=== PATIENT | female | born 1935 | race Caucasian/White ===

== ENCOUNTER 2017-10-06 16:41 | Emergency (ER) | payer MEDICARE, OTHER ==
[2017-10-06] MEDS ORDERED: Sodium Chloride 0.9% 10 ML Syringe FLUSH PRN ×2 (16:49→17:51)
[2017-10-06] MEDS ORDERED: Ondansetron 4 MG/2 ML SDV IVPUSH ONE (16:49)
[2017-10-06 16:53] VITALS: BP 159/78
[2017-10-06] MEDS ORDERED: Diatrizoate Meglumine/Diatrizoate Sodium 37% 120 ML Bottle PO ONE (17:51)
[2017-10-06] MEDS ORDERED: Iopamidol 612 MG/ML 100 ML Bottle IVPUSH ONE (17:51)
--- NOTE | 2017-10-06 18:36 | CT ---
CT abdomen and pelvis Technique: Multiple axial sections were obtained from above the dome of the diaphragm inferiorly to the pubic symphysis. Intravenous and oral contrast has been given. Delayed images were obtained through the bladder. Comparison: Previous CT abdomen and pelvis exam of 12/21/11. Findings: Visualized lung bases shows nothing acute. Large hiatal hernia is seen increased in size from prior study with majority of stomach being intrathoracic. Liver shows no focal parenchymal abnormality. Surgical clips are seen from prior cholecystectomy. Adrenal glands show no nodule. Pancreas is within normal limits. Spleen appears within normal limits. Fatty containing lesion is seen posteriorly within the right kidney measuring about 3.3 cm in size which is stable. Smaller lesion is noted anteriorly within the right kidney measuring about 1 cm in size. These are felt compatible with stable angiomyolipomas. Cyst is noted within the left kidney measuring 1.9 cm in size slightly increased in size from prior exam which is incidental. Aorta and iliac vessels shows atherosclerotic change without aneurysm. No retroperitoneal adenopathy or mesenteric abnormalities are seen. Surgical clips are seen from prior cholecystectomy. Fat-containing anterior abdominal wall hernia is seen which is stable from previous exam. Diverticuli are seen within the sigmoid colon with no findings of diverticulitis. Diverticuli are also seen within the descending colon. No pelvic mass or adenopathy is seen. Delayed images shows contrast within the distal ureters and within the bladder. Bone window settings were reviewed which shows disc space narrowing and vacuum phenomena within the L2-3 through L5-S1 disks. Lesser vacuum phenomena is seen within the T11-T12 disc. Impression: 1. Large hiatal hernia with majority of stomach being intrathoracic. This has increased in prominence from previous exam. 2. Other findings as noted above which are felt to be fairly stable from previous exam. Nothing acute is seen. Diagnostic code #3
--- NOTE | 2017-10-06 19:54 | EDM.PDOC ---
ED HPI GENERAL MEDICAL PROBLEM - General Chief Complaint: Gastrointestinal Problem Stated Complaint: [facility] Time Seen by Provider: 10/06/17 16:44 Source of Information: Reports: Patient, EMS History Limitations: Reports: No Limitations - History of Present Illness INITIAL COMMENTS - FREE TEXT/NARRATIVE: The patient presents with diarrhea, generalized weakness, and nausea. She does have some abdominal pain at times. She has a moderate cough with shortness of breath also. She has no fever. She does have some chills. She has not had antibiotics recently. She is very weak and has no appetite. She is unable to take much in because of the nausea. EMS gave her a dose of zofran. Onset: Gradual Duration: Week(s): (2) Location: Reports: Abdomen Quality: Reports: Ache Severity: Moderate Improves with: Reports: None Worsens with: Reports: None Associated Symptoms: Reports: Cough, Fever/Chills, Nausea/Vomiting. Denies: Chest Pain, Headaches, Shortness of Breath Treatments INSECTICIDE EXPERT: Reports: Other (see below) Other Treatments INSECTICIDE EXPERT: immodium - Related Data Allergies Allergy/AdvReac Type Severity Reaction Status Date / Time ciprofloxacin Allergy Stomach Verified 10/06/17 16:48 Upset Home Meds: Home Meds Gluc/Brown-Msm#2/C/D3/Behzad/Born [Cylczublqt-Zotmqbvdbgz-XRD] 2 tab PO DAILY 10/18 [History] Labetalol [Normodyne] 50 mg PO BID 10/18/15 [History] Lisinopril/Hydrochlorothiazide [Lisinopril-Hctz 20-12.5 mg Tab] 1 each PO DAILY 10/18/15 [History] amLODIPine [Norvasc] 5 mg PO DAILY 10/18/15 [History] Woxsf-G-Ewuhhumccmuzi [Beano] 1 tab PO DAILY PRN 10/06/17 [History] Aspirin [Halfprin] 81 mg PO DAILY 10/06/17 [History] Calcium Carbonate/Vitamin D3 [Os-Teodoro 500+D] 1 tab PO DAILY 10/06/17 [History] Cholecalciferol (Vitamin D3) [Vitamin D3] 1,000 units PO DAILY 10/06/17 [History ] Cinnamon Bark [Cinnamon] 1,000 mg PO DAILY 10/06/17 [History] Hydrocortisone [Hydrocortisone 2.5% Crm] 1 applic TOP BID PRN 10/06/17 [History] Ibuprofen 200 mg PO Q4H PRN 10/06/17 [History] Immodium 10/06/17 [History] Omeprazole [priLOSEC OTC] 20 mg PO DAILY 10/06/17 [History] Psyllium Husk [Psyllium] 1 tab PO DAILY 10/06/17 [History] Simethicone [Gas Relief] 1 mg PO DAILY PRN 10/06/17 [History] Womens Health Support Po 10/06/17 [History] Past Medical History HEENT History: Reports: Cataract Cardiovascular History: Reports: Heart Murmur, Hypertension Gastrointestinal History: Reports: GERD, Hemorrhoids Other Gastrointestinal History: diverticulitis Genitourinary History: Reports: Urinary Incontinence 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: Musculoskeletal History: Reports: Arthritis, Back Pain, Chronic Other Musculoskeletal History: spinal stenisis Psychiatric History: Reports: Anxiety, Depression Endocrine/Metabolic History: Reports: Hypothyroidism, Osteoporosis 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 Other Dermatologic History: gout - Past Surgical History HEENT Surgical History: Reports: Cataract Surgery GI Surgical History: Reports: Cholecystectomy, Hernia, Abdominal Other GI Surgeries/Procedures: umbillical Social & Family History - Tobacco Use Smoking Status *Q: Never Smoker Second Hand Smoke Exposure: No - Caffeine Use Caffeine Use: Reports: Coffee, Soda, Tea - Recreational Drug Use Recreational Drug Use: No - Living Situation & Occupation Living situation: Reports: , Alone Occupation: Retired ED ROS GENERAL - Review of Systems Review Of Systems: See Below Constitutional: Reports: Chills. Denies: Fever HEENT: Reports: No Symptoms Respiratory: Reports: No Symptoms Cardiovascular: Reports: No Symptoms Endocrine: Reports: No Symptoms GI/Abdominal: Reports: Abdominal Pain, Diarrhea, Nausea, Vomiting : Reports: No Symptoms Musculoskeletal: Reports: No Symptoms Skin: Reports: No Symptoms Neurological: Reports: No Symptoms ED EXAM, GI/ABD - Physical Exam Exam: See Below Exam Limited By: No Limitations General Appearance: Alert, No Apparent Distress Ears: Normal External Exam Nose: Normal Inspection Head: Atraumatic, Normocephalic Neck: Normal Inspection Respiratory/Chest: No Respiratory Distress, Decreased Breath Sounds, Rhonchi Cardiovascular: Regular Rate, Rhythm, No Edema, No Murmur GI/Abdominal Exam: Soft, Non-Tender, No Organomegaly, No Mass, Other (Ventral hernia) Extremities: Normal Inspection Neurological: Alert, Oriented, No Motor/Sensory Deficits EKG INTERPRETATION EKG Date: 10/06/17 Time: 17:31 Rhythm: NSR Rate (Beats/Min): 74 Brimson: Normal P-Wave: Present QRS: RBBB ST-T: Normal QT: Normal Course - Vital Signs Last Recorded V/S: Last Vital Signs Temp 97.7 F 10/06/17 16:49 Pulse 75 10/06/17 16:49 Resp 25 H 10/06/17 16:49 BP 159/78 H 10/06/17 16:49 Pulse Ox 100 10/06/17 20:38 - Orders/Labs/Meds Orders: Active Orders 24 hr Category Date Time Status EKG Documentation Completion [RC] ASDIRECTED Care 10/06/17 16:51 Active Oxygen Therapy, ED [RC] ASDIRECTED Care 10/06/17 20:28 Active Peripheral IV Care [RC] . DIRECTED Care 10/06/17 16:49 Active RT Aerosol Therapy [RC] ASDIRECTED Care 10/06/17 20:28 Active CXR [Chest 1V Frontal] [CR] Stat Exams 10/06/17 20:27 Taken Sodium Chloride 0.9% [Saline Flush] Med 10/06/17 16:49 Active 10 ml FLUSH ASDIRECTED PRN Sodium Chloride 0.9% [Saline Flush] Med 10/06/17 17:51 Active 10 ml FLUSH ONETIME PRN ED Antiemetic Medication Reflex [OM.PC] Stat Oth 10/06/17 16:49 Ordered Peripheral IV Insertion Adult [OM.PC] Stat Oth 10/06/17 16:49 Ordered EKG 12 Lead [EK] Stat Ther 10/06/17 16:50 Ordered Medication Orders Sodium Chloride (Saline Flush) 10 ml FLUSH ASDIRECTED PRN PRN Reason: Keep Vein Open Last Admin: 10/06/17 17:13 Dose: 10 ml Sodium Chloride (Saline Flush) 10 ml FLUSH ONETIME PRN PRN Reason: IV FLUSH Last Admin: 10/06/17 18:06 Dose: 10 ml Labs: Laboratory Tests 10/06/17 10/06/17 10/06/17 Range/Units 17:00 17:00 19:35 WBC 7.12 (3.98-10.04) K/mm3 RBC 4.99 (3.98-5.22) M/mm3 Hgb 14.6 (11.2-15.7) gm/L Hct 44.5 (34.1-44.9) % MCV 89.2 (79.4-94.8) fl MCH 29.3 (25.6-32.2) pg MCHC 32.8 (32.2-35.5) g/dl RDW Std Deviation 45.9 (36.4-46.3) fL Plt Count 218 (182-369) K/mm3 MPV 9.8 (9.4-12.3) fl Neut % (Auto) 58.5 (34.0-71.1) % Lymph % (Auto) 28.7 (19.3-51.7) % [place] % (Auto) 8.1 (4.7-12.5) % Eos % (Auto) 4.1 (0.7-5.8) Baso % (Auto) 0.3 (0.1-1.2) % Neut # (Auto) 4.17 (1.56-6.13) K/mm3 Lymph # (Auto) 2.04 (1.18-3.74) K/mm3 [place] # (Auto) 0.58 H (0.24-0.36) K/mm3 Eos # (Auto) 0.29 (0.04-0.36) K/mm3 Baso # (Auto) 0.02 (0.01-0.08) K/mm3 Sodium 140 (136-145) mEq/L Potassium 3.3 L (3.5-5.1) mEq/L Chloride 101 (98-107) mEq/L Carbon Dioxide 29 (21-32) mEq/L Anion Gap 13.3 (5-15) BUN 10 (7-18) mg/dL Creatinine 0.8 (0.55-1.02) mg/dL Est Cr Clr Drug Dosing 40.21 mL/min Estimated GFR (MDRD) > 60 (>60) mL/min BUN/Creatinine Ratio 12.5 L (14-18) Glucose 137 H (83-115) mg/dL Calcium 9.6 (8.5-10.1) mg/dL Total Bilirubin 0.3 (0.2-1.0) mg/dL AST 33 (15-37) U/L ALT 38 (14-59) U/L Alkaline Phosphatase 100 (46-116) U/L Troponin I 0.018 (0.00-0.056) ng/mL Total Protein 6.4 (6.4-8.2) g/dl Albumin 3.2 L (3.4-5.0) g/dl Globulin 3.2 gm/dL Albumin/Globulin Ratio 1.0 (1-2) Lipase 55 L (73-393) U/L Urine Color Yellow (Yellow) Urine Appearance Clear (Clear) Urine pH 7.0 (5.0-8.0) Ur Specific [place] 1.010 (1.005-1.030) Urine Protein Negative (Negative) Urine Glucose (UA) Negative (Negative) Urine Ketones Negative (Negative) Urine Occult Blood Negative (Negative) Urine Nitrite Negative (Negative) Urine Bilirubin Negative (Negative) Urine Urobilinogen 0.2 (0.2-1.0) Ur Leukocyte Esterase Negative (Negative) Urine RBC Not seen (0-5) /hpf Urine WBC Not seen (0-5) /hpf Ur Epithelial Cells 0-5 (0-5) /hpf Urine Bacteria Not seen (FEW) /hpf Urine Mucus Not seen (FEW) /hpf Meds: Medications Generic Name Dose Route Start Last Admin Trade Name Helio PRN Reason Stop Dose Admin Sodium Chloride 10 ml 10/06/17 16:49 10/06/17 17:13 Saline Flush FLUSH 10 ml ASDIRECTED PRN Administration Keep Vein Open Sodium Chloride 10 ml 10/06/17 17:51 10/06/17 18:06 Saline Flush FLUSH 10 ml ONETIME PRN Administration IV FLUSH Discontinued Medications Generic Name Dose Route Start Last Admin Trade Name Helio PRN Reason Stop Dose Admin Albuterol/Ipratropium 3 ml 10/06/17 20:28 10/06/17 20:37 Duoneb 3.0-0.5 Mg/3 Ml NEB 10/06/17 20:29 3 ml ONETIME ONE Administration Diatrizoate Meglum/Diatrizoate Sod 120 ml 10/06/17 17:51 10/06/17 18:06 Gastrografin 37% PO 10/06/17 17:52 90 ml ONETIME ONE Administration Iopamidol 100 ml 10/06/17 17:51 10/06/17 18:06 Isovue-300 (61%) IVPUSH 10/06/17 17:52 100 ml ONETIME ONE Administration Ondansetron HCl 4 mg 10/06/17 16:49 10/06/17 17:12 Zofran IVPUSH 10/06/17 16:50 4 mg ONETIME ONE Administration - Re-Assessments/Exams Free Text/Narrative Re-Assessment/Exam: 10/06/17 20:14 I ordered an IV NS 500mL bolus, EKG, labs, UA and a CT of her abdomen and pelvis. 10/06/17 20:16 Her CBC looks good. Her K was a little low at 3.3. Her glucose was elevated at 137. Her lipase was low at 55. Her troponin was negative. Her UA shows no UTI. Her CT shows a large hiatal hernia with majority of stomach being intrathoracic. This has increased in prominence from previous exam. She also has a fat-containing anterior abdominal wall hernia which is stable from previous exam. She was unable to give us a stool sample yet. 10/06/17 20:31 While the patient was here her oxygen level would go down into the mid 80s. I ordered some oxygen, CXR and a duoneb. I feel like she needs to be admitted. She has nausea, diarrhea and bronchitis. She also was dehydrated. 10/06/17 20:58 I do not see any infiltrate on her CXR. There is still the large hiatal hernia. I talked with our hospitalist Dr Dennison and he came to see the patient and he had some concerns about her staying here for care and he recommended she be transferred to [place]. I called [facility] in [place] and talked to Dr Johansen and he accepted the patient. Departure - Departure Time of Disposition: 21:10 Disposition: DC/Tfer to Acute Hospital 02 Condition: Fair Clinical Impression: Hypoxia, Bronchitis, Nausea, Dehydration, Hiatal hernia Diarrhea Qualifiers: Diarrhea type: unspecified type Qualified Code(s): R19.7 - Diarrhea, unspecified Ventral hernia Qualifiers: Obstruction and gangrene presence: without obstruction or gangrene Qualified Code(s): K43.9 - Ventral hernia without obstruction or gangrene - Discharge Information Referrals: Ashlyn Painter MD [Primary Care Provider] - Forms: ED Department Discharge - My Orders Last 24 Hours: My Active Orders 10/06/17 16:49 Peripheral IV Care [RC] . DIRECTED Sodium Chloride 0.9% [Saline Flush] 10 ml FLUSH ASDIRECTED PRN ED Antiemetic Medication Reflex [OM.PC] Stat Peripheral IV Insertion Adult [OM.PC] Stat 10/06/17 16:50 EKG 12 Lead [EK] Stat 10/06/17 16:51 EKG Documentation Completion [RC] ASDIRECTED 10/06/17 17:51 Sodium Chloride 0.9% [Saline Flush] 10 ml FLUSH ONETIME PRN 10/06/17 20:27 CXR [Chest 1V Frontal] [CR] Stat 10/06/17 20:28 Oxygen Therapy, ED [RC] ASDIRECTED RT Aerosol Therapy [RC] ASDIRECTED - Assessment/Plan Last 24 Hours: My Active Orders 10/06/17 16:49 Peripheral IV Care [RC] . DIRECTED Sodium Chloride 0.9% [Saline Flush] 10 ml FLUSH ASDIRECTED PRN ED Antiemetic Medication Reflex [OM.PC] Stat Peripheral IV Insertion Adult [OM.PC] Stat 10/06/17 16:50 EKG 12 Lead [EK] Stat 10/06/17 16:51 EKG Documentation Completion [RC] ASDIRECTED 10/06/17 17:51 Sodium Chloride 0.9% [Saline Flush] 10 ml FLUSH ONETIME PRN 10/06/17 20:27 CXR [Chest 1V Frontal] [CR] Stat 10/06/17 20:28 Oxygen Therapy, ED [RC] ASDIRECTED RT Aerosol Therapy [RC] ASDIRECTED
[2017-10-06] MEDS ORDERED: Albuterol/Ipratropium 3.0-0.5 MG/3 ML Neb Soln NEB ONE (20:28)
--- NOTE | 2017-10-07 06:42 | CR ---
Chest: Portable chest was obtained. Comparison: Prior chest x-ray is not available. Heart is enlarged. Tortuous thoracic aorta is seen. Lungs are clear. Scoliosis is present within the spine. Bony structures are osteopenic. Impression: 1. Findings as noted above. Nothing acute is appreciated. Diagnostic code #2
== END 2017-10-06 21:40 ==
LOC: JD.ED 16:41
DX: K43.9 Ventral hernia without obstruction or gangrene (principal); K44.9 Diaphragmatic hernia without obstruction or gangrene; E86.0 Dehydration; J40 Bronchitis, not specified as acute or chronic; I10 Essential (primary) hypertension; Z88.1 Allergy status to other antibiotic agents; Z79.82 Long term (current) use of aspirin; Z79.899 Other long term (current) drug therapy
CPT/HCPCS: 36415; 71045; 74177; 80053; 81001; 83690; 84484; 85025; 93005; 94640; 96374; 99285; J2405; J7050; P9612; Q9963; Q9967; 93010

== ENCOUNTER 2018-03-22 12:46 | Emergency (ER) | payer MEDICARE, OTHER ==
[2018-03-22 13:15] VITALS: BP 138/64
--- NOTE | 2018-03-22 13:45 | EDM.PDOC ---
<Teresa Panda M - Last Filed: 03/22/18 13:37> ED HPI GENERAL MEDICAL PROBLEM - General Chief Complaint: Genitourinary Problem Stated Complaint: UNABLE TO URINATE Time Seen by Provider: 03/22/18 13:00 Source of Information: Reports: Patient History Limitations: Reports: No Limitations - History of Present Illness INITIAL COMMENTS - FREE TEXT/NARRATIVE: Patient is brought to the ED today for complaint of inability to urinate. Patient states that she attempted to void this morning at 0800 but only managed a dribble of urine. She has 5/10, discomfort she describes as a pressure sensation in pelvic region. Associated symptoms include nausea and chills. She tried taking zofran this morning but it was not helpful. Nothing worsens or improves the discomfort. Pain does not radiate. Patient denies fevers, vomiting, constipation, or dysuria. Patient states that she had a UTI recently and it felt similar to the symptoms she is experiencing today. 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: Other (see below) (Zofran) Lower Abdominal Pain Score (Numeric/FACES): 5 - Related Data Allergies Allergy/AdvReac Type Severity Reaction Status Date / Time ciprofloxacin Allergy Stomach Verified 03/22/18 13:05 Upset Home Meds: Home Meds Gluc/Brown-Msm#2/C/D3/Behzad/Born [Ptvnvxqbrj-Wzgtymjiqhm-DRS] 2 tab PO DAILY 10/18 [History] Labetalol [Normodyne] 50 mg PO BID 10/18/15 [History] Lisinopril/Hydrochlorothiazide [Lisinopril-Hctz 20-12.5 mg Tab] 1 each PO DAILY 10/18/15 [History] amLODIPine [Norvasc] 5 mg PO DAILY 10/18/15 [History] Yfnmc-U-Xkldrartadjuh [Beano] 1 tab PO DAILY PRN 10/06/17 [History] Aspirin [Halfprin] 81 mg PO DAILY 10/06/17 [History] Calcium Carbonate/Vitamin D3 [Os-Teodoro 500+D] 1 tab PO DAILY 10/06/17 [History] Cholecalciferol (Vitamin D3) [Vitamin D3] 1,000 units PO DAILY 10/06/17 [History ] Cinnamon Bark [Cinnamon] 1,000 mg PO DAILY 10/06/17 [History] Hydrocortisone [Hydrocortisone 2.5% Crm] 1 applic TOP BID PRN 10/06/17 [History] Ibuprofen 200 mg PO Q4H PRN 10/06/17 [History] Omeprazole [priLOSEC OTC] 20 mg PO DAILY 10/06/17 [History] Psyllium Husk [Psyllium] 1 tab PO DAILY 10/06/17 [History] Simethicone [Gas Relief] 1 mg PO DAILY PRN 10/06/17 [History] Womens Health Support Po 1 tab PO DAILY 10/06/17 [History] Potassium Bicarbonate/Cit Ac [Effer-K 10 Meq Tablet Eff] 10 meq PO DAILY #5 tablet.eff 03/22/18 [Rx] Past Medical History HEENT History: Reports: Cataract Cardiovascular History: Reports: Heart Murmur, Hypertension Gastrointestinal History: Reports: GERD, Hemorrhoids Other Gastrointestinal History: diverticulitis Genitourinary History: Reports: Urinary Incontinence 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: Musculoskeletal History: Reports: Arthritis, Back Pain, Chronic Other Musculoskeletal History: spinal stenisis Psychiatric History: Reports: Anxiety, Depression Endocrine/Metabolic History: Reports: Hypothyroidism, Osteoporosis 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 Denies: Fever, Weakness, Fatigue, Diaphoresis Respiratory: Denies: Shortness of Breath, Wheezing, Pleuritic Chest Pain, Cough Cardiovascular: Denies: Chest Pain GI/Abdominal: Reports: Abdominal Pain, Nausea. Denies: Bloody Stool, Constipation, Vomiting : Reports: Dysuria, Pain, Urinary Retention. Denies: Flank Pain Skin: Reports: No Symptoms Neurological: Reports: No Symptoms. Denies: Confusion ED EXAM, RENAL/ - Physical Exam Exam: See Below Exam Limited By: No Limitations General Appearance: Alert, WD/WN, No Apparent Distress Head: Atraumatic, Normocephalic Respiratory/Chest: No Respiratory Distress, Lungs Clear, Normal Breath Sounds, No Accessory Muscle Use, Chest Non-Tender Cardiovascular: Normal Peripheral Pulses, Regular Rate, Rhythm, No Edema, No Gallop, No Murmur, No Rub GI/Abdominal: Normal Bowel Sounds, Soft, Non-Tender, No Organomegaly, No Distention, No Abnormal Bruit Neurological: Alert, Oriented, Normal Cognition Skin Exam: Warm, Dry, Intact, Normal Color, No Rash Course - Vital Signs Last Recorded V/S: Last Vital Signs Temp 97.4 F 03/22/18 13:05 Pulse 62 03/22/18 13:05 Resp BP 138/64 03/22/18 13:05 Pulse Ox 93 L 03/22/18 13:05 - Orders/Labs/Meds Labs: Laboratory Tests 03/22/18 03/22/18 03/22/18 Range/Units 14:07 14:07 14:15 WBC 9.13 (3.98-10.04) K/mm3 RBC 4.77 (3.98-5.22) M/mm3 Hgb 14.3 (11.2-15.7) gm/L Hct 42.1 (34.1-44.9) % MCV 88.3 (79.4-94.8) fl MCH 30.0 (25.6-32.2) pg MCHC 34.0 (32.2-35.5) g/dl RDW Std Deviation 45.1 (36.4-46.3) fL Plt Count 244 (182-369) K/mm3 MPV 10.2 (9.4-12.3) fl Neut % (Auto) 67.1 (34.0-71.1) % Lymph % (Auto) 20.4 (19.3-51.7) % [place] % (Auto) 8.3 (4.7-12.5) % Eos % (Auto) 3.4 (0.7-5.8) Baso % (Auto) 0.7 (0.1-1.2) % Neut # (Auto) 6.13 (1.56-6.13) K/mm3 Lymph # (Auto) 1.86 (1.18-3.74) K/mm3 [place] # (Auto) 0.76 H (0.24-0.36) K/mm3 Eos # (Auto) 0.31 (0.04-0.36) K/mm3 Baso # (Auto) 0.06 (0.01-0.08) K/mm3 Sodium 134 L (136-145) mEq/L Potassium 3.2 L (3.5-5.1) mEq/L Chloride 99 (98-107) mEq/L Carbon Dioxide 28 (21-32) mEq/L Anion Gap 10.2 (5-15) BUN 17 (7-18) mg/dL Creatinine 0.9 (0.55-1.02) mg/dL Est Cr Clr Drug Dosing 34.02 mL/min Estimated GFR (MDRD) 60 (>60) mL/min BUN/Creatinine Ratio 18.9 H (14-18) Glucose 135 H (83-115) mg/dL Calcium 9.9 (8.5-10.1) mg/dL Total Bilirubin 0.4 (0.2-1.0) mg/dL AST 40 H (15-37) U/L ALT 42 (14-59) U/L Alkaline Phosphatase 82 (46-116) U/L Total Protein 6.3 L (6.4-8.2) g/dl Albumin 3.2 L (3.4-5.0) g/dl Globulin 3.1 gm/dL Albumin/Globulin Ratio 1.0 (1-2) TSH 3rd Generation 1.036 (0.358-3.74) uIU/mL Urine Color Yellow (Yellow) Urine Appearance Clear (Clear) Urine pH 6.0 (5.0-8.0) Ur Specific [place] 1.025 (1.005-1.030) Urine Protein Negative (Negative) Urine Glucose (UA) Negative (Negative) Urine Ketones Negative (Negative) Urine Occult Blood Negative (Negative) Urine Nitrite Negative (Negative) Urine Bilirubin Negative (Negative) Urine Urobilinogen 0.2 (0.2-1.0) Ur Leukocyte Esterase Negative (Negative) Urine RBC 0-5 (0-5) /hpf Urine WBC 0-5 (0-5) /hpf Ur Epithelial Cells 0-5 (0-5) /hpf Urine Bacteria Few (FEW) /hpf Hyaline Casts 5-10 H (0-5) /lpf Urine Mucus Moderate H (FEW) /hpf Meds: Medications Discontinued Medications Generic Name Dose Route Start Last Admin Trade Name Helio PRN Reason Stop Dose Admin Potassium Chloride 20 meq 03/22/18 14:52 03/22/18 15:03 Klor-Con M20 PO 03/22/18 14:53 20 meq ONETIME ONE Administration Departure - Departure Disposition: Home, Self-Care 01 Clinical Impression: Urethritis, Hypokalemia - Discharge Information Prescriptions: Potassium Bicarbonate/Cit Ac [Effer-K 10 Meq Tablet Eff] 10 meq PO DAILY #5 tablet.eff Instructions: Hypokalemia, Urethritis, Adult Referrals: Ashlyn Painter MD [Primary Care Provider] - Forms: ED Department Discharge Additional Instructions: Potassium 1 tab daily. Start this prescription tomorrow. make sure you are drinking plenty of fluids. Follow-up with Dr. Painter within one week to have your potassium rechecked. Follow-up with Dr. Cortes as planned. Please return to the ER if your symptoms change or worsen. <Lizz Rowan - Last Filed: 03/25/18 07:18> ED HPI GENERAL MEDICAL PROBLEM - General Source of Information: Reports: Old Records (recent labs and imaging ) - History of Present Illness INITIAL COMMENTS - FREE TEXT/NARRATIVE: I have seen the patient and agree with the HPI as documented by ADDISON Valera. Additionally patient reports to me malaise x several months. She has seen her PCP who did labs and nothing was abnormal. Patient reports she feels "terrible" . Patient reports back pain, chronic, but has not experienced any change. Patient reports epigastric discomfort related to a large hiatal hernia. She is currently seeing surgery in [place] for options regarding this. ED ROS GENERAL - Review of Systems Review Of Systems: See Below Constitutional: Reports: Malaise (x several months) GI/Abdominal: Reports: Abdominal Pain (severe hiatal hernia). Denies: Black Stool ED EXAM, RENAL/ - Physical Exam Psychiatric: Depressed Mood Course - Re-Assessments/Exams Free Text/Narrative Re-Assessment/Exam: 03/22/18 15:16 I have seen the patient and agree with the HPI, ROS and PE as documented by ADDISON Valera. I reviewed the labs with the patient. She is quite certain she has a UTI. Will send for culture but given the UA today felt to be unlikely. Will start on potassium supplementation and follow-up with PCP in one week for a recheck of potassium. Will discharge home today. Discharge instructions as documented. Departure - Departure Time of Disposition: 15:16 Condition: Fair - Discharge Information *PRESCRIPTION DRUG MONITORING PROGRAM REVIEWED*: No *COPY OF PRESCRIPTION DRUG MONITORING REPORT IN PATIENT TERA: No
[2018-03-22] MEDS ORDERED: Potassium Chloride 20 MEQ Tab.ER PO ONE (14:52)
== END 2018-03-22 15:30 | disposition home or self-care (01) ==
LOC: JD.ED 12:46
DX: N28.89 Other specified disorders of kidney and ureter (principal); E87.6 Hypokalemia; I10 Essential (primary) hypertension; Z88.1 Allergy status to other antibiotic agents; Z79.899 Other long term (current) drug therapy
CPT/HCPCS: 36415; 51701; 51798; 80053; 81001; 84443; 85025; 87086; 99283; A9270

== ENCOUNTER 2020-01-17 17:25 | Emergency (ER) | payer MEDICARE, OTHER ==
[2020-01-17 18:10] VITALS: BP 146/77; PULSE 53
[2020-01-17] MEDS ORDERED: cefTRIAXone 1 GM, Lidocaine 1% 2.1 ML IM SCH ×2 (19:30)
--- NOTE | 2020-01-17 19:30 | EDM.PDOC ---
ED HPI GENERAL MEDICAL PROBLEM - General Chief Complaint: Skin Complaint Stated Complaint: INFECTED DOG BITE ON LEG Time Seen by Provider: 01/17/20 18:16 Source of Information: Reports: Patient History Limitations: Reports: No Limitations - History of Present Illness INITIAL COMMENTS - FREE TEXT/NARRATIVE: The patient presents with a dog bite to the right leg. She says she was breaking up a couple young dogs and she got bit on her right leg. The dogs shots are up to date. She has some redness to the bite area and a little more pain. She also says that it will bleed sometimes. She has no fever or chills. Onset: Sudden Duration: Day(s): Location: Reports: Lower Extremity, Right (leg) Quality: Reports: Ache Severity: Mild Improves with: Reports: None Worsens with: Reports: None Associated Symptoms: Reports: No Other Symptoms Right Leg Pain Score (Numeric/FACES): 4 - Related Data Allergies Allergy/AdvReac Type Severity Reaction Status Date / Time ciprofloxacin Allergy Stomach Verified 01/17/20 18:10 Upset Home Meds: Home Meds Glucosam/Chond-MSM 2/C/D3/Behzad [Rgpriktzkf-Qjnorjhukqm-MXF] 2 tab PO DAILY 10/18 [History] Labetalol [Normodyne] 50 mg PO BID 10/18/15 [History] Lisinopril/Hydrochlorothiazide [Lisinopril-Hctz 20-12.5 mg Tab] 1 each PO DAILY 10/18/15 [History] amLODIPine [Norvasc] 5 mg PO DAILY 10/18/15 [History] Ddstc-G-Ventpuccoseoz [Beano] 1 tab PO DAILY PRN 10/06/17 [History] Aspirin [Halfprin] 81 mg PO DAILY 10/06/17 [History] Calcium Carbonate/Vitamin D3 [Os-Teodoro 500+D] 1 tab PO DAILY 10/06/17 [History] Cholecalciferol (Vitamin D3) [Vitamin D3] 1,000 units PO DAILY 10/06/17 [History ] Cinnamon Bark [Cinnamon] 1,000 mg PO DAILY 10/06/17 [History] Hydrocortisone [Hydrocortisone 2.5% Crm] 1 applic TOP BID PRN 10/06/17 [History] Ibuprofen 200 mg PO Q4H PRN 10/06/17 [History] Omeprazole [priLOSEC OTC] 20 mg PO DAILY 10/06/17 [History] Psyllium Husk [Psyllium] 1 tab PO DAILY 10/06/17 [History] Simethicone [Gas Relief] 1 mg PO DAILY PRN 10/06/17 [History] Womens Health Support Po 1 tab PO DAILY 10/06/17 [History] Potassium Bicarbonate/Cit Ac [Effer-K 10 Meq Tablet Eff] 10 meq PO DAILY #5 tablet.eff 03/22/18 [Rx] Amoxicillin/Potassium Clav [Augmentin 875-125 Tablet] 1 each PO BID #20 tablet 01/17/20 [Rx] Past Medical History HEENT History: Reports: Cataract Cardiovascular History: Reports: Heart Murmur, Hypertension Gastrointestinal History: Reports: GERD, Hemorrhoids Other Gastrointestinal History: diverticulitis Genitourinary History: Reports: Urinary 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: Musculoskeletal History: Reports: Arthritis, Back Pain, Chronic Other Musculoskeletal History: spinal stenisis Psychiatric History: Reports: Anxiety, Depression Endocrine/Metabolic History: Reports: Hypothyroidism, Osteoporosis 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 Other Dermatologic History: gout - Past Surgical History HEENT Surgical History: Reports: Cataract Surgery GI Surgical History: Reports: Cholecystectomy, Hernia, Abdominal Other GI Surgeries/Procedures: umbillical Social & Family History - Tobacco Use Smoking Status *Q: Never Smoker Second Hand Smoke Exposure: No - Caffeine Use Caffeine Use: Reports: None - Recreational Drug Use Recreational Drug Use: No - Living Situation & Occupation Living situation: Reports: , Alone Occupation: Retired ED ROS GENERAL - Review of Systems Review Of Systems: See Below Constitutional: Reports: No Symptoms HEENT: Reports: No Symptoms Respiratory: Reports: No Symptoms Cardiovascular: Reports: No Symptoms Endocrine: Reports: No Symptoms GI/Abdominal: Reports: No Symptoms : Reports: No Symptoms Musculoskeletal: Reports: Other (Scab to the right lower leg with some erythema around it.) ED EXAM, SKIN/RASH Exam: See Below Exam Limited By: No Limitations General Appearance: Alert, No Apparent Distress Ears: Normal External Exam Nose: Normal Inspection Head: Atraumatic, Normocephalic Neck: Normal Inspection Respiratory/Chest: No Respiratory Distress Extremities: Other (Scab to the right lower leg with erythema around it) Course - Vital Signs Last Recorded V/S: Last Vital Signs Temp 97.3 F 01/17/20 18:07 Pulse 53 L 01/17/20 18:07 Resp 16 01/17/20 18:07 BP 146/77 H 01/17/20 18:07 Pulse Ox 94 L 01/17/20 18:07 - Orders/Labs/Meds Orders: Active Orders 24 hr Category Date Time Status Tibia Fibula Rt [CR] Stat Exams 01/17/20 18:25 Taken Labs: Laboratory Tests 01/17/20 01/17/20 Range/Units 18:59 18:59 WBC 7.34 (3.98-10.04) K/mm3 RBC 4.51 (3.98-5.22) M/mm3 Hgb 13.2 (11.2-15.7) gm/dl Hct 41.5 (34.1-44.9) % MCV 92.0 (79.4-94.8) fl MCH 29.3 (25.6-32.2) pg MCHC 31.8 L (32.2-35.5) g/dl RDW Std Deviation 50.5 H (36.4-46.3) fL Plt Count 283 (182-369) K/mm3 MPV 10.0 (9.4-12.3) fl Neut % (Auto) 54.3 (34.0-71.1) % Lymph % (Auto) 28.1 (19.3-51.7) % Trigg % (Auto) 9.3 (4.7-12.5) % Eos % (Auto) 7.1 H (0.7-5.8) Baso % (Auto) 1.1 (0.1-1.2) % Neut # (Auto) 3.99 (1.56-6.13) K/mm3 Lymph # (Auto) 2.06 (1.18-3.74) K/mm3 Trigg # (Auto) 0.68 H (0.24-0.36) K/mm3 Eos # (Auto) 0.52 H (0.04-0.36) K/mm3 Baso # (Auto) 0.08 (0.01-0.08) K/mm3 C-Reactive Protein 0.6 (<1.0) mg/dL - Re-Assessments/Exams Free Text/Narrative Re-Assessment/Exam: 01/17/20 19:29 I did an x-ray and that looks good. Her CBC and CRP look good. I will get her a shot of rocephin and get her on some augmentin. I will also refer her to PT for wound management. Departure - Departure Time of Disposition: 19:30 Disposition: Home, Self-Care 01 Condition: Good Clinical Impression: Dog bite of right lower leg Qualifiers: Encounter type: initial encounter Qualified Code(s): S81.851A - Open bite, right lower leg, initial encounter; W54.0XXA - Bitten by dog, initial encounter Cellulitis Qualifiers: Site of cellulitis: extremity Site of cellulitis of extremity: lower extremity Laterality: right Qualified Code(s): L03.115 - Cellulitis of right lower limb - Discharge Information *PRESCRIPTION DRUG MONITORING PROGRAM REVIEWED*: Not Applicable *COPY OF PRESCRIPTION DRUG MONITORING REPORT IN PATIENT TERA: Not Applicable Prescriptions: Amoxicillin/Potassium Clav [Augmentin 875-125 Tablet] 1 each PO BID #20 tablet Referrals: Ashlyn Painter MD [Primary Care Provider] - 1 Week Additional Instructions: Clean the wound with warm soapy water 2 times per day and apply antibiotic ointment after. Take the augmentin 2 times per day for 10 days. Follow up with physical therapy for wound management and follow up with your doctor. Please return if you are worse. Sepsis Event Note - Evaluation Sepsis Screening Result: No Definite Risk - Focused Exam Vital Signs: Vital Signs Temp Pulse Resp BP Pulse Ox 01/17/20 18:07 97.3 F 53 L 16 146/77 H 94 L Date Exam was Performed: 01/17/20 Time Exam was Performed: 19:25 - My Orders Last 24 Hours: My Active Orders 01/17/20 18:25 Tibia Fibula Rt [CR] Stat - Assessment/Plan Last 24 Hours: My Active Orders 01/17/20 18:25 Tibia Fibula Rt [CR] Stat
--- NOTE | 2020-01-18 08:14 | CR ---
Right tibia and fibula: AP and lateral views of the right tibia and fibula were obtained. Comparison: No prior tibia or fibula exam. Severe joint space narrowing is noted within the tibiotalar joint. Chondrocalcinosis is noted within the menisci of the knee. Osteophytes are noted off the lateral joint of the knee and off the patella. Bony structures are osteopenic. No acute abnormality is seen. Soft tissue swelling is noted. Impression: 1. Degenerative change as described above. 2. Soft tissue swelling. 3. No acute bony abnormality is appreciated. No radiopaque foreign body is seen. Diagnostic code #2 This report was dictated in MDT
== END 2020-01-17 20:05 | disposition home or self-care (01) ==
LOC: JD.ED 17:25
DX: S81.851A Open bite, right lower leg, initial encounter (principal); L03.115 Cellulitis of right lower limb; I10 Essential (primary) hypertension; K21.9 Gastro-esophageal reflux disease without esophagitis; M19.90 Unspecified osteoarthritis, unspecified site; E03.9 Hypothyroidism, unspecified; Z88.1 Allergy status to other antibiotic agents; Z79.899 Other long term (current) drug therapy; Z79.82 Long term (current) use of aspirin; W54.0XXA Bitten by dog, initial encounter
CPT/HCPCS: 36415; 73590; 85025; 86140; 96372; 99283; J0696; J2001; 99282

== ENCOUNTER 2020-09-17 14:50 | Emergency (ER) | payer MEDICARE, OTHER ==
[2020-09-17] MEDS ORDERED: Sodium Chloride 0.9% 10 ML Syringe FLUSH PRN (15:26)
[2020-09-17] MEDS ORDERED: Ondansetron 4 MG/2 ML SDV IVPUSH ONE (15:28)
[2020-09-17] MEDS ORDERED: Sodium Chloride 0.9% 1,000 ML IV STA (15:28)
--- NOTE | 2020-09-17 15:34 | EDM.PDOC ---
<Allison Nunez - Last Filed: 09/17/20 17:26> ED HPI GENERAL MEDICAL PROBLEM - General Chief Complaint: Abdominal Pain Stated Complaint: BLOOD IN STOOL,ABD AND BACK PAIN Time Seen by Provider: 09/17/20 15:03 Source of Information: Reports: Patient, RN Notes Reviewed History Limitations: Reports: No Limitations - History of Present Illness INITIAL COMMENTS - FREE TEXT/NARRATIVE: Patient is an 85 year old female presenting to the ER with c/o a 4-5 day history of lower abdominal pain as well as a small amount of jagdish red blood in her stool today. Pt states that she frequently experiences this pain, but that it normal resolves when she has a bowel movement. She has been having small, soft bowel movements daily; however, the pain persists. Today, she sat on the toilet for about 2 hours and was only able to have a small, soft BM. She did have some rectal pain during this time and noticed a streak of blood on her stool and also some blood on the toilet paper with wiping. She has hemorrhoids and states that she has had to have a hemorrhoidectomy in the past. She occasionally has some burning with urination. She c/o some nausea, but denies vomiting. She has a hx of diverticulitis. Her last colonscopy was 8-10 years ago. She denies fever or chills. Lower Abdomen Pain Score (Numeric/FACES): 8 - Related Data Allergies Allergy/AdvReac Type Severity Reaction Status Date / Time ciprofloxacin Allergy Stomach Verified 09/17/20 15:00 Upset Home Meds: Home Meds Glucosam/Chond-MSM 2/C/D3/Behzad [Khknpclfnr-Txixujxsbto-PBG] 2 tab PO DAILY 10/18/15 [History] Labetalol [Normodyne] 50 mg PO BID 10/18/15 [History] Lisinopril/Hydrochlorothiazide [Lisinopril-Hctz 20-12.5 mg Tab] 1 each PO DAILY 10/18/15 [History] amLODIPine [Norvasc] 5 mg PO DAILY 10/18/15 [History] Cvbft-X-Anmnxmyaiupho [Beano] 1 tab PO DAILY PRN 10/06/17 [History] Aspirin [Halfprin] 81 mg PO DAILY 10/06/17 [History] Calcium Carbonate/Vitamin D3 [Os-Teodoro 500+D] 1 tab PO DAILY 10/06/17 [History] Cholecalciferol (Vitamin D3) [Vitamin D3] 1,000 units PO DAILY 10/06/17 [History] Cinnamon Bark [Cinnamon] 1,000 mg PO DAILY 10/06/17 [History] Hydrocortisone [Hydrocortisone 2.5% Crm] 1 applic TOP BID PRN 10/06/17 [History] Ibuprofen 200 mg PO Q4H PRN 10/06/17 [History] Omeprazole [priLOSEC OTC] 20 mg PO DAILY 10/06/17 [History] Psyllium Husk [Psyllium] 1 tab PO DAILY 10/06/17 [History] Simethicone [Gas Relief] 1 mg PO DAILY PRN 10/06/17 [History] Womens Health Support Po 1 tab PO DAILY 10/06/17 [History] Potassium Bicarbonate/Cit Ac [Effer-K 10 Meq Tablet Eff] 10 meq PO DAILY #5 tablet.eff 03/22/18 [Rx] Amoxicillin/Potassium Clav [Augmentin 875-125 Tablet] 1 each PO BID #20 tablet 01/17/20 [Rx] Amoxicillin/Clavulanate K [Augmentin 875-125 MG] 1 tab PO Q8H 7 Days #21 tablet 09/17/20 [Rx] Past Medical History HEENT History: Reports: Cataract, Impaired Vision Other HEENT History: wears eyeglasses. Cardiovascular History: Reports: Heart Murmur, Hypertension Gastrointestinal History: Reports: Diverticulosis, GERD, Hemorrhoids, Hiatal Hernia Other Gastrointestinal History: diverticulitis Genitourinary History: Reports: Urinary Incontinence, UTI, Recurrent, Other (See Below) Other Genitourinary History: cysts on kidneys. 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 Other Dermatologic History: gout - Infectious Disease History Infectious Disease History: Reports: Chicken Pox, Measles, Mumps, Pertussis (Whooping Cough), Shingles - Past Surgical History HEENT Surgical History: Reports: Cataract Surgery GI Surgical History: Reports: Cholecystectomy, Hernia, Abdominal, Other (See Below) Other GI Surgeries/Procedures: umbillical, hiatal hernia repair Social & Family History - Tobacco Use Tobacco Use Status *Q: Never Tobacco User Second Hand Smoke Exposure: No - Caffeine Use Caffeine Use: Reports: Coffee - Recreational Drug Use Recreational Drug Use: No - Living Situation & Occupation Living situation: Reports: , Alone Occupation: Retired ED ROS GENERAL - Review of Systems Review Of Systems: See Below Constitutional: Reports: Decreased Appetite. Denies: Fever, Chills, Weakness, Fatigue HEENT: Reports: No Symptoms Respiratory: Reports: No Symptoms Cardiovascular: Reports: No Symptoms Endocrine: Reports: No Symptoms GI/Abdominal: Reports: Abdominal Pain, Bloody Stool, Nausea. Denies: Black Stool, Diarrhea, Melena, Vomiting : Reports: Dysuria (occasional) Musculoskeletal: Reports: No Symptoms Skin: Reports: No Symptoms Neurological: Reports: No Symptoms Psychiatric: Reports: No Symptoms Hematologic/Lymphatic: Reports: No Symptoms Immunologic: Reports: No Symptoms ED EXAM, GI/ABD - Physical Exam Exam: See Below General Appearance: Alert, WD/WN, No Apparent Distress Respiratory/Chest: No Respiratory Distress, Lungs Clear, Normal Breath Sounds, No Accessory Muscle Use, Chest Non-Tender Cardiovascular: Normal Peripheral Pulses, Regular Rate, Rhythm, No Edema, No Gallop, No JVD, No Murmur, No Rub GI/Abdominal Exam: Normal Bowel Sounds, Soft, No Organomegaly, No Distention, No Abnormal Bruit, No Mass, Pelvis Stable, Tender (RLQ and LLQ) Rectal (Female) Exam: Normal Rectal Tone, Heme + Stool, Hemorrhoids (thrombosed x 3. No obvious source of bleeding. Small amount of jagdish red blood on rectal exam. ). No: Fecal Impaction (thrombosed x 3), Mass Neurological: Alert, Oriented, CN II-XII Intact, Normal Cognition, Normal Gait, Normal Reflexes, No Motor/Sensory Deficits Psychiatric: Normal Affect, Normal Mood Skin Exam: Warm, Dry, Intact, Normal Color, No Rash Course - Re-Assessments/Exams Free Text/Narrative Re-Assessment/Exam: Patient is an 85-year-old female presenting to the emergency department with complaints of a 4 to 5-day history of lower abdominal pain with a sensation of having to have a bowel movement without being able to go. She also noted a small amount of blood on her stool and on the toilet paper today after sitting on the toilet for about 2 hours tried to have a bowel movement. Rectal exam was completed. Patient does have 3 thrombosed hemorrhoids with no obvious bleeding. There was a scant amount of jagdish red blood during digital exam. She has tenderness to palpation across her bilateral lower abdomen. She denies the need for pain medications. States she does not feel overly nauseous, but has agreed to accept nausea medications as I am going to order CT scan of the abdomen pelvis with IV and oral contrast. I have also ordered a CBC, CMP CRP, urinalysis. 09/17/20 17:30 Hematology was significant for WBC slightly elevated at 13.67, BUN 22, calcium 10.3. Urinalysis by quick cath was nitrate positive with 5-10 WBCs and many bacteria. CT scan of the abdomen pelvis shows inflammatory change around a large portion of the descending and sigmoid regions either due to mild diffuse diverticulitis or more likely mild colitis. Abdominal wall hernia containing a loop of nondilated small bowel. Other findings as above are less acute. Di scussed results with patient and her daughter. Blood noted in the stool is likely due to her thrombosed hemorrhoids, however bleeding related to the inflammation is also in the differential. Patient has been tolerating fluids well and is not in significant amount of pain. I will treat for diverticulitis and urinary tract infection with a 7-day course of Augmentin. Recommend follow- up with her PCP on Wednesday. Discussed return precautions. Discharge instructions as documented. Departure - Departure Time of Disposition: 17:34 Disposition: Home, Self-Care 01 Condition: Good Clinical Impression: Diverticulitis UTI (urinary tract infection) Qualifiers: Urinary tract infection type: site unspecified Hematuria presence: without hematuria Qualified Code(s): N39.0 - Urinary tract infection, site not specified - Discharge Information *PRESCRIPTION DRUG MONITORING PROGRAM REVIEWED*: No *COPY OF PRESCRIPTION DRUG MONITORING REPORT IN PATIENT TERA: No Prescriptions: Amoxicillin/Clavulanate K [Augmentin 875-125 MG] 1 tab PO Q8H 7 Days #21 tablet Instructions: Diverticulitis, Urinary Tract Infection, Adult, Ruuu-nf-Kmej Referrals: Ashlyn Painter MD [Primary Care Provider] - Forms: ED Department Discharge Additional Instructions: You were seen in the emergency department today for lower abdominal pain along with the feeling of having to have a bowel movement and some blood in your stool. Work-up included blood work, urinalysis, and a CT scan of your abdomen pelvis. Results of your work-up show inflammation in the lower part of your colon, likely due to diverticulitis. You also have a urinary tract infection. You have been started on Augmentin for the treatment of both of these. Take this medication as prescribed. Recommend follow-up with your primary care provider on Wednesday of this week for reevaluation. If you should experience any worsening symptoms or are unable to tolerate the oral medications, you should return to the emergency department for reevaluation. Sepsis Event Note (ED) - Evaluation Sepsis Screening Result: No Definite Risk <Chemo Mojica - Last Filed: 09/20/20 07:40> Course - Vital Signs Last Recorded V/S: Last Vital Signs Temp 97.0 F 09/17/20 18:15 Pulse 62 09/17/20 18:15 Resp 16 09/17/20 18:15 BP 127/62 09/17/20 18:15 Pulse Ox 95 09/17/20 18:15 - Orders/Labs/Meds Labs: Laboratory Tests 09/17/20 09/17/20 09/17/20 Range/Units 15:45 15:45 17:00 WBC 13.67 H (3.98-10.04) K/mm3 RBC 4.83 (3.98-5.22) M/mm3 Hgb 14.2 (11.2-15.7) gm/dl Hct 44.3 (34.1-44.9) % MCV 91.7 (79.4-94.8) fl MCH 29.4 (25.6-32.2) pg MCHC 32.1 L (32.2-35.5) g/dl RDW Std Deviation 48.3 H (36.4-46.3) fL Plt Count 262 (182-369) K/mm3 MPV 9.9 (9.4-12.3) fl Neut % (Auto) 80.2 H (34.0-71.1) % Lymph % (Auto) 10.4 L (19.3-51.7) % Mcmullen % (Auto) 7.8 (4.7-12.5) % Eos % (Auto) 1.2 (0.7-5.8) Baso % (Auto) 0.2 (0.1-1.2) % Neut # (Auto) 10.95 H (1.56-6.13) K/mm3 Lymph # (Auto) 1.42 (1.18-3.74) K/mm3 Mcmullen # (Auto) 1.07 H (0.24-0.36) K/mm3 Eos # (Auto) 0.17 (0.04-0.36) K/mm3 Baso # (Auto) 0.03 (0.01-0.08) K/mm3 Manual Slide Review Normal smear Sodium 141 (136-145) mEq/L Potassium 4.1 (3.5-5.1) mEq/L Chloride 104 (98-107) mEq/L Carbon Dioxide 27 (21-32) mEq/L Anion Gap 14.1 (5-15) BUN 22 H (7-18) mg/dL Creatinine 0.9 (0.55-1.02) mg/dL Est Cr Clr Drug Dosing 33.86 mL/min Estimated GFR (MDRD) 59 (>60) mL/min BUN/Creatinine Ratio 24.4 H (14-18) Glucose 143 H (83-115) mg/dL Calcium 10.3 H (8.5-10.1) mg/dL Total Bilirubin 0.5 (0.2-1.0) mg/dL AST 18 (15-37) U/L ALT 24 (14-59) U/L Alkaline Phosphatase 79 (46-116) U/L C-Reactive Protein 0.8 (<1.0) mg/dL Total Protein 6.7 (6.4-8.2) g/dl Albumin 3.5 (3.4-5.0) g/dl Globulin 3.2 gm/dL Albumin/Globulin Ratio 1.1 (1-2) Urine Color Light yellow (Yellow) Urine Appearance Clear (Clear) Urine pH 5.5 (5.0-8.0) Ur Specific [place] 1.020 (1.005-1.030) Urine Protein Negative (Negative) Urine Glucose (UA) Negative (Negative) Urine Ketones Negative (Negative) Urine Occult Blood Negative (Negative) Urine Nitrite Positive H (Negative) Urine Bilirubin Negative (Negative) Urine Urobilinogen 0.2 (0.2-1.0) Ur Leukocyte Esterase Negative (Negative) Urine RBC 0-5 (0-5) /hpf Urine WBC 5-10 H (0-5) /hpf Ur Squamous Epith Cells 0-5 (0-5) /hpf Urine Bacteria Many H (FEW) /hpf Urine Mucus Few (FEW) /hpf Meds: Medications Discontinued Medications Generic Name Dose Route Start Last Admin Trade Name Freq PRN Reason Stop Dose Admin Diatrizoate Meglum/Diatrizoate Sod 90 ml 09/17/20 16:46 09/17/20 16:51 Gastrografin 37% PO 09/17/20 16:47 90 ml ONETIME ONE Administration Sodium Chloride 1,000 mls @ 150 mls/hr 09/17/20 15:28 09/17/20 16:09 Normal Saline IV 09/17/20 22:07 150 mls/hr NOW STA Administration Iopamidol 100 ml 09/17/20 16:46 09/17/20 16:51 Isovue-300 (61%) IVPUSH 09/17/20 16:47 100 ml ONETIME ONE Administration Ondansetron HCl 4 mg 09/17/20 15:28 09/17/20 16:08 Zofran IVPUSH 09/17/20 15:29 4 mg ONETIME ONE Administration Sodium Chloride 10 ml 09/17/20 15:26 09/17/20 16:09 Saline Flush FLUSH 10 ml ASDIRECTED PRN Administration Keep Vein Open Sodium Chloride 10 ml 09/17/20 16:46 09/17/20 16:51 Saline Flush FLUSH 09/17/20 16:47 10 ml ONETIME ONE Administration - Re-Assessments/Exams Free Text/Narrative Re-Assessment/Exam: 09/20/20 07:40 Urine culture is growing out e coli sensitive to augmentin prescribed.
[2020-09-17] MEDS ORDERED: Iopamidol 612 MG/ML 100 ML Bottle IVPUSH ONE (16:46)
[2020-09-17] MEDS ORDERED: Diatrizoate Meglumine/Diatrizoate Sodium 37% 120 ML Bottle PO ONE (16:46)
[2020-09-17] MEDS ORDERED: Sodium Chloride 0.9% 10 ML Syringe FLUSH ONE (16:46)
--- NOTE | 2020-09-17 17:11 | CT ---
CT abdomen and pelvis Technique: Multiple axial sections were obtained from above the dome of the diaphragm inferiorly through the pubic symphysis. Intravenous and oral contrast was utilized. Reconstructed coronal and sagittal images were obtained. Delayed images were obtained through the bladder. Comparison: Prior CT abdomen and pelvis study of 10/06/17. Findings: Visualized lung bases show nothing acute. Previous intrathoracic stomach has been corrected and now lies below the diaphragm. Small amount of contrast is noted within the esophagus. Liver contains no focal parenchymal abnormality. Surgical clips are seen from prior cholecystectomy. Spleen appears normal. Adrenal glands show no nodule. Pancreas appears without discrete abnormality. Kidneys show symmetric contrast enhancement. Cyst is noted within the lower left kidney which is seen on prior CT exam and measures about 2.1 cm. There is a fat-containing lesion within the right kidney measuring approximately 2.5 cm which is stable and compatible with large angiomyolipoma. Aorta shows atherosclerotic calcification without aneurysm. Atherosclerotic calcification continues into the iliac vessels. No pelvic mass or adenopathy is appreciated. Diffuse diverticulosis is seen within the descending and sigmoid regions. There is mild inflammatory change being seen around portion of the descending colon which either represents fairly large area of diverticulitis or could represent mild colitis. Appendix is not definitely visualized. There is an abdominal wall hernia within the upper pelvis to the right of midline which contains a loop of small bowel. This does not appear to be obstructing. Bone window settings were reviewed which show scoliosis and degenerative change throughout the spine. Delayed images show contrast within the bladder and portions of the distal ureters. Impression: 1. Inflammatory change around a large portion of the descending and sigmoid regions either due to mild diffuse diverticulitis or more likely mild colitis. 2. Abdominal wall hernia containing a loop of nondilated small bowel. 3. Other findings as noted above which are less acute. Diagnostic code #3
[2020-09-17 18:41] VITALS: BP 127/62; PULSE 62
== END 2020-09-17 18:20 | disposition home or self-care (01) ==
LOC: JD.ED 14:50
DX: K57.92 Diverticulitis of intestine, part unspecified, without perforation or abscess without bleeding (principal); N39.0 Urinary tract infection, site not specified; D72.829 Elevated white blood cell count, unspecified; I10 Essential (primary) hypertension; K21.9 Gastro-esophageal reflux disease without esophagitis; M10.9 Gout, unspecified; E03.9 Hypothyroidism, unspecified; Z88.1 Allergy status to other antibiotic agents; Z79.82 Long term (current) use of aspirin; Z79.899 Other long term (current) drug therapy
CPT/HCPCS: 36415; 74177; 80053; 81001; 85025; 86140; 87086; 87088; 87186; 96374; 99284; J2405; J7030; Q9963; Q9967

== ENCOUNTER 2023-03-31 00:58 | Emergency (ER) | payer MEDICARE, OTHER ==
[2023-03-31 03:28] VITALS: BP 133/66; PULSE 67
== END 2023-03-31 03:15 | disposition home or self-care (01) ==
LOC: JD.ED 00:58
DX: R15.2 Fecal urgency (principal); I10 Essential (primary) hypertension; E03.9 Hypothyroidism, unspecified; K21.9 Gastro-esophageal reflux disease without esophagitis; Z88.1 Allergy status to other antibiotic agents; Z79.82 Long term (current) use of aspirin; Z79.899 Other long term (current) drug therapy
CPT/HCPCS: 74018; 74018-26; 99283

== ENCOUNTER 2024-02-20 09:04 | Emergency (ER) | payer MEDICARE, OTHER ==
[2024-02-20 09:30] LABS: BASOPHILS PERCENT AUTO 0.6 % (0.0-1.0); EOSINOPHILS ABSOLUTE AUTO 0.1 K/mm3 (0.0-0.4); EOSINOPHILS PERCENT AUTO 1.7 % (0.0-6.0); HEMATOCRIT 37.3 % (37.0-47.0); IMMATURE GRAN ABSOLUTE AUTO 0.02 K/mm3 (0.00-0.05); IMMATURE GRAN PERCENT AUTO 0.3 % (0.0-0.4); LYMPHOCYTES ABSOLUTE AUTO 2.3 K/mm3 (1.0-4.8); LYMPHOCYTES PERCENT AUTO 31.8 % (24.0-44.0); MEAN CORPUSCULAR HEMOGLOBIN 29.4 pg (28.0-32.0); MEAN CORPUSCULAR HGB CONC 32.2 g/dl (32.0-36.0); MEAN CORPUSCULAR VOLUME 91.4 fl (83.0-99.0); MEAN PLATELET VOLUME 8.9 fl (9.4-12.3); MONOCYTES ABSOLUTE AUTO 0.6 K/mm3 (0.0-0.8); MONOCYTES PERCENT AUTO 8.4 % (0.0-8.0); NEUTROPHILS ABSOLUTE AUTO 4.1 K/mm3 (1.8-7.7); NEUTROPHILS PERCENT AUTO 57.2 % (41.0-71.0); PLATELET COUNT,PLT 248 K/mm3 (150-400); RED BLOOD CELL COUNT 4.08 M/mm3 (4.10-5.30); WHITE BLOOD CELL COUNT,WBC 7.13 K/mm3 (3.9-11.3)
[2024-02-20 09:57] LABS: A/G RATIO 1.1 (1-2); ALBUMIN 3.2 g/dl (3.4-5.0); BILIRUBIN TOTAL 0.5 mg/dL (0.2-1.0); CALCIUM 9.6 mg/dL (8.5-10.1); EST CRCL DRUG DOSING (CG) 28.78 mL/min
[2024-02-20 13:28] VITALS: BP 135/76; PULSE 76
== END 2024-02-20 12:15 | disposition home or self-care (01) ==
LOC: JD.ED 09:04
DX: R07.89 Other chest pain (principal); I10 Essential (primary) hypertension; K21.9 Gastro-esophageal reflux disease without esophagitis; Z88.1 Allergy status to other antibiotic agents; Z79.899 Other long term (current) drug therapy; Z90.49 Acquired absence of other specified parts of digestive tract
CPT/HCPCS: 36415; 71045; 71045-26; 80053; 84484; 85025; 93005; 93010; 99282; 99285

== ENCOUNTER 2024-04-25 11:07 | Emergency (ER) | payer MEDICARE, OTHER ==
[2024-04-25 11:48] LABS: BASOPHILS PERCENT AUTO 0.6 % (0.0-1.0); EOSINOPHILS ABSOLUTE AUTO 0.1 K/mm3 (0.0-0.4); EOSINOPHILS PERCENT AUTO 1.7 % (0.0-6.0); HEMATOCRIT 42.8 % (37.0-47.0); HEMOGLOBIN 13.6 gm/dl (12.0-16.0); IMMATURE GRAN ABSOLUTE AUTO 0.02 K/mm3 (0.00-0.05); IMMATURE GRAN PERCENT AUTO 0.3 % (0.0-0.4); LYMPHOCYTES ABSOLUTE AUTO 1.9 K/mm3 (1.0-4.8); LYMPHOCYTES PERCENT AUTO 28.7 % (24.0-44.0); MEAN CORPUSCULAR HEMOGLOBIN 29.4 pg (28.0-32.0); MEAN CORPUSCULAR HGB CONC 31.8 g/dl (32.0-36.0); MEAN CORPUSCULAR VOLUME 92.6 fl (83.0-99.0); MEAN PLATELET VOLUME 9.5 fl (9.4-12.3); MONOCYTES ABSOLUTE AUTO 0.6 K/mm3 (0.0-0.8); MONOCYTES PERCENT AUTO 8.8 % (0.0-8.0); NEUTROPHILS PERCENT AUTO 59.9 % (41.0-71.0); PLATELET COUNT,PLT 302 K/mm3 (150-400); RED BLOOD CELL COUNT 4.62 M/mm3 (4.10-5.30); WHITE BLOOD CELL COUNT,WBC 6.59 K/mm3 (3.9-11.3)
[2024-04-25 12:12] LABS: A/G RATIO 1.1 (1-2); ALBUMIN 3.2 g/dl (3.4-5.0); ANION GAP 8.9 (5-15); BILIRUBIN TOTAL 0.6 mg/dL (0.2-1.0); BUN/CREATININE RATIO 13.8 (14-18); CALCIUM 9.8 mg/dL (8.5-10.1); CREATININE 0.8 mg/dL (0.55-1.02); EST CRCL DRUG DOSING (CG) 34.24 mL/min; POTASSIUM,K 3.9 mEq/L (3.5-5.1)
[2024-04-25] MEDS: Aspirin 81 MG Tab.Chew PO ONE (12:52)
[2024-04-25] MEDS: Ondansetron 4 MG/2 ML SDV IVPUSH ONE (12:52)
[2024-04-25] MEDS: Sodium Chloride 0.9% 10 ML Syringe FLUSH PRN (12:52)
[2024-04-25 15:39] VITALS: BP 148/86; PULSE 67
== END 2024-04-25 15:37 | disposition home or self-care (01) ==
LOC: JD.ED 11:07
DX: J40 Bronchitis, not specified as acute or chronic (principal); Z79.899 Other long term (current) drug therapy; Z88.1 Allergy status to other antibiotic agents; Z88.2 Allergy status to sulfonamides
CPT/HCPCS: 36415; 71045; 80053; 84484; 85025; 93005; 96374; 99285; A9270; J2405; J3490; 93010; 99284